=== PATIENT | female | born 1985 | race African-American/Black ===

== ENCOUNTER 2018-10-25 20:18 | Emergency (ER) | payer OTHER ==
[~2018-10-25] VITALS: Ht 167.6 cm; Wt 95.3 kg
[2018-10-25 20:23] VITALS: BP 136/89
[2018-10-25] MEDS ORDERED: DIPH,PERTUSS(ACELL),TET VAC/PF 0.5 ML IM-VACC ONE ×2 (20:30→20:43)
[2018-10-25] MEDS ORDERED: LIDOCAINE 2%, 20ML SQ ONE (20:30)
[2018-10-25] MEDS ORDERED: BACITRACIN ZINC OINT 500U/GM, 0.9 GM ONE (21:29)
--- NOTE | 2018-10-25 21:38 | NUR ---
FINGER LAC ON RIGHT HAND REPAIRED BY [employer]. DRESSED BY [employer] [employer]. PT TOLERATED WELL.
--- NOTE | 2018-10-25 21:39 | NUR ---
Patient/Caregiver given discharge instructions and they have confirmed that they understand the instructions. Patient ambulatory with steady gait.
== END 2018-10-25 22:23 | disposition home or self-care (01) ==
LOC: ED 22:07
DX: S61.210A Laceration without foreign body of right index finger without damage to nail, initial encounter (principal); F17.210 Nicotine dependence, cigarettes, uncomplicated; W26.8XXA Contact with other sharp object(s), not elsewhere classified, initial encounter; Y93.89 Activity, other specified; Y92.89 Other specified places as the place of occurrence of the external cause; Y99.8 Other external cause status
CPT/HCPCS: 12001; 90471; 90715; 99283